=== PATIENT | male | born 1970 | race African-American/Black ===

== ENCOUNTER → 2017-06-24 | Day surgery (SDC) | payer OTHER ==
[~2017-06-24] MED LIST: LIDOCAINE 2% INJ 100 MG/5 ML SDV (FOR ANES.) As Ordered; PROPOFOL 200 MG/20 ML VIAL As Ordered
[2017-06-24] MEDS: NS 1,000 ML IV (09:37)
== END | disposition home or self-care (01) ==
LOC: M OPP 09:05
DX: K62.5 Hemorrhage of anus and rectum (principal); K62.1 Rectal polyp; K64.0 First degree hemorrhoids; R19.7 Diarrhea, unspecified; Z80.42 Family history of malignant neoplasm of prostate
CPT/HCPCS: 45380